=== PATIENT | female | born 1990 ===

== ENCOUNTER → 2018-11-19 | Outpatient (CLI) | payer SELFPAY ==
[2018-11-23 15:07] LABS: HPV 16 Negative (Negative); HPV 18 Negative (Negative); HPV OTHER HR TYPES Negative (Negative)
== END ==
LOC: LAB 13:33 → LAB SHORT 13:33
PROVIDERS: Registered Nurse Community Health
DX: Z01.419 Encounter for gynecological examination (general) (routine) without abnormal findings (principal)
CPT/HCPCS: 87624; G0123

== ENCOUNTER 2022-02-22 09:19 | Day surgery (SDC) | payer OTHER ==
[~2022-02-22] VITALS: Ht 167.6 cm; Wt 73.8 kg
[2022-02-22] MEDS ORDERED: OXYC5 PO (09:38)
[2022-02-22] MEDS ORDERED: IBUP800 PO (09:38)
--- NOTE | 2022-02-22 10:59 | NUR ---
02/22/22 1059 Mandy Echevarria PT RIGHT HAND BRUSIED AND SWOLLEN, OPEN SCABS AND ABRASION ANTERIOR HAND, RIGHT MIDDLE AND RING FINGER MACERATION NOTED, ELBOW AND FOREARM SWOLLEN AND BRUISED. MD AWARE NO FURTHER ORDERS GIVEN AT THIS TIME
== END 2022-02-22 12:35 | disposition home or self-care (01) ==
LOC: ORSCSDS 09:19
PROVIDERS: Orthopaedic Surgery
PROC: 0PSP04Z Reposition Right Metacarpal with Internal Fixation Device, Open Approach (ICD-10-PCS; principal; 2022-02-22 10:15)
DX: S62.322A Displaced fracture of shaft of third metacarpal bone, right hand, initial encounter for closed fracture (principal); F17.210 Nicotine dependence, cigarettes, uncomplicated
CPT/HCPCS: A9270; J0690; J1100; J1885; J2250; J2405; J2704; J2795; J3010